=== PATIENT | female | born 1945 | race Caucasian/White ===

== ENCOUNTER → 2023-11-10 09:13 | Outpatient (REF) | payer MEDICARE, OTHER, SELFPAY | LOC: RAD 09:13 | PROVIDERS: ATTENDING PHYSICIAN Internal Medicine Gastroenterology; FAMILY PHYSICIAN Family Medicine | DX: R13.10 Dysphagia, unspecified (principal) | CPT/HCPCS: 74246 ==

== ENCOUNTER 2024-02-21 19:55 | Observation (INO) | payer MEDICARE, OTHER, SELFPAY ==
[2024-02-21 16:13] VITALS: BP 188/76
--- NOTE | 2024-02-21 16:14 | ED.GENMED ---
History of Present Illness
General
Chief Complaint: Seizure
Source: patient and ambulance crew
Exam Limitations: none
Time Seen by Provider: 02/21/24 16:14
Nursing documentation reviewed up to this point in time: agreed with
History of Present Illness
History of Present Illness:
79-year-old female presents for seizure. She has a history of complex partial seizures on Vimpat, HTN, bipolar cyst, depression remote history of alcoholism has been sober for 17 years. Pt states she remembers being in bed, next recall is sitting
on the toilet with 'my head down and seeing black boots all around me (EMS boots) She does not recall wlking to the bathroom. States past two weeks has been unable to walk as usual with her walker due to weakness and her legs giving out 'my daughter
caught me a couple of times.' Denies recent falls. Has a headache, has chronic headaches, this is not new, usually take Tylenon for H/A and 'it doesn't help.' Denies change in vision, denies n/v/d/c. Denies SOB, CP, abdominal pain. Denies UTI
symptoms.
Pt takes her Vimpat 100 mg BID as ordered has not missed a dose.
Followed by Neurology Dr. Campuzano who she saw 2 weeks ago.
4:45 p.m.
Daughter arrives stating patient has declined physically in the past 2 weeks becoming weaker and weaker and today she was barely able to get her out of bed to walk with her walker to the bathroom today. She confirms pt's above history. States pt
sitting on the toilet said 'I cannot make it to the car' so daughter called EMS to transport her here. Patient tested COVID-negative at home today. Daughter states she is just more lethargic, tired and wants to sleep all the time for the past 2
weeks.
Patient last saw neurologist Dr. Campuzano on 01/28/2024. She has request for outpatient lab work with her, I will perform these tests here today.
Past History
Past History
ED Past Medical History: HTN, Hypercholesterolemia, Psychiatric (Bipolar disorder) and Other (Hepatitis C, Colitis)
ED Past Surgical History: Orthopedic (Right hip replacement 11/26/2012)
Social History
Tobacco: Former smoker
Alcohol: Former (Sober for 17 years)
Drug: None
Personal:
Living: with family (Daughter)
Employment: Retired
Family History
Family History: Other (Noncontributory)
Review of Systems
Review of Systems
Allergies reviewed?: Yes
All Other Systems: ROS reviewed and negative except as documented in HPI and ROS
Constitutional: Denies fever
Respiratory: Denies trouble breathing
Cardiac: Denies chest pain
ABD/GI: Denies abdominal pain, nausea, vomiting, diarrhea, constipated or anorexia
: Denies dysuria, incontinence or difficulty voiding
Musculoskeletal: Reports no symptoms
Skin: Reports no symptoms
Neurological: Reports headache (chronic similar to her previous headaches)
Phy Exam
Physical Exam
Physical Exam:
GENERAL: No acute distress. A&Ox3.
CONSTITUTIONAL: Afebrile.
EYES: PERRL, conjunctivae normal
ENMT: moist mucus membranes, Pharynx nl
RESPIRATORY: Regular respirations, nonlabored, lungs clear.
CARDIOVASCULAR: Regular rate and rhythm, no murmurs, no rubs.
GI: Soft, nontender, normal BS
MUSCULOSKELETAL: Moves with ease. Well perfused. No edema
SKIN: Warm, dry, pink
PSYCH: Normal mood and affect. Well kept, interactive and appropriate
NEUROLOGIC: Awake, alert and oriented. No focal neurological deficits. Speech clear, strength equal throughout. No seizure activity
Course
Orders/Labs/Results
Orders:
Orders
02/21/24 16:21
Basic Metabolic Panel Urgent
C-Reactive Protein Urgent
Comment: ADD ON
Complete Blood Count/With Diff Urgent
Erythrocyte Sed Rate Urgent
Comment: ADD ON
TSH Reflex To Free T4 Urgent
Comment: ADD ON
Vitamin B12 Urgent
Comment: ADD ON
02/21/24 16:50
Case Management Consult ONCE
Case Management Consult: Discharge Planning
Comment: 79 yo with increasing weakness over past 2 weeks, daughter would prefer PT/OT at home
02/21/24 16:51
Physical Therapy Consult [Pt Eval And Treat] Urgent
Treatment: ambulate with walker
Activity Level: As Tolerated
02/21/24 17:04
Add On- LAB Urgent
Tests Added?: CRP, Sed rate, TSH reflex T4, Vit B 12, Vit B1
02/21/24 17:50
Comprehensive Metabolic Panel Urgent
Vitamin B1, Whole Blood [S] Urgent
02/21/24 18:12
Urinalysis Reflex To Culture Urgent
Date Specimen was Collected: 02/21/24
Time Specimen was Collected: 17:55
Urine Microscopic Reflex Cult Urgent
02/21/24 18:55
Lacosamide [Vimpat] 100 mg PO NOW STA
02/21/24 19:28
CR Chest - 2 Views Stat
Comment:
Reason For Exam: sob
02/21/24 19:37
Admit/Transfer Patient As Directed
Co-Sign Provider:
Level of Care: Observation services
Assign to:: Telemetry
Physician / Group: jose enrique olivarez
Diagnosis: seizure
Reason for Telemetry: Other
Other Reason for Telemetry: seizure
Date to Stop Telemetry: 02/23/24
Time to Stop Telemetry: 11:00
PRN Pain Medication Management As Directed
May give lesser potent ordered pain med per pt: No
preference::
Protocol:: Medication orders for pain may NOT be administered in
a manner that defers to patient preference. Follow
all order instructions as written.
Contact provider if ordering parameters for pain need
to be adjusted.
02/21/24 19:38
Code Status As Directed
Resuscitation Status: Full Code
02/21/24 19:59
COVID-19 Antigen Stat
Source: Nasal Swab
02/21/24 20:00
Iohexol [Omnipaque] 50 ml PO ONCE ONE
02/23/24 11:00
DC Protocol for Telemetry ONCE
Abnormal Lab Results
02/21/24 02/21/24 02/21/24
16:21 17:50 18:12
RBC 4.01 L 10^6/uL
(4.20-5.40)
MCH 33.4 H pg
(27.0-31.0)
ESR 23 H mm/hour
(0-20)
Chloride 108 H mmol/L
(98-107)
Carbon Dioxide 20 L mmol/L
(22-30)
BUN 18 H mg/dl
(7-17)
Calcium 11.1 H mg/dl 10.8 H mg/dl
(8.4-10.2) (8.4-10.2)
Vitamin B12 > 1000 H pg/ml
(239-931)
Leukocyte Esterase Rfl Trace A
(Negative)
Urine Bacteria (Reflex) Few A
(Negative)
02/21/24 16:21
02/21/24 17:50
Vital Signs
Initial and Last Documented VS:
Initial Vital Signs
Temp Pulse Resp BP Pulse Ox
98.3 F 75 17 188/76 99
02/21/24 16:13 02/21/24 16:13 02/21/24 16:13 02/21/24 16:13 02/21/24 16:13
Last Documented Vital Signs
Temp Pulse Resp BP Pulse Ox
98.3 F 69 16 151/77 98
02/21/24 16:13 07/20/24 16:49 02/21/24 16:49 02/21/24 16:49 02/21/24 16:49
Sociology Adjunct Instructor consulted with Physician
Sociology Adjunct Instructor consulted with physician?: Yes
Name of Physician Consulted: Dr. Nelson
MDM/Problems Addressed
Differential Diagnosis Includes:
Breakthrough seizure, deconditioning/generalized weakness, UTI, dehydration
MDM/Problems Addressed:
79-year-old female presents for seizure. She has a history of complex partial seizures on Vimpat, HTN, bipolar cyst, depression remote history of alcoholism has been sober for 17 years. Pt states she remembers being in bed, next recall is sitting
on the toilet with 'my head down and seeing black boots all around me (EMS boots) She does not recall wlking to the bathroom. States past two weeks has been unable to walk as usual with her walker due to weakness and her legs giving out 'my daughter
caught me a couple of times.' Denies recent falls. Has a headache, has chronic headaches, this is not new, usually take Tylenon for H/A and 'it doesn't help.' Denies change in vision, denies n/v/d/c. Denies SOB, CP, abdominal pain. Denies UTI
symptoms.
Pt takes her Vimpat 100 mg BID as ordered has not missed a dose.
Followed by Neurology Dr. Campuzano who she saw 2 weeks ago.
Pt had episode8 days ago when she was walking with walker, faltered and daughter lowered her into a chair. 'She went limp.'
4:45 p.m.
Daughter arrives stating patient has declined physically in the past 2 weeks becoming weaker and weaker and today she was barely able to get her out of bed to walk with her walker to the bathroom today. She confirms pt's above history. States pt
sitting on the toilet said 'I cannot make it to the car' so daughter called EMS to transport her here. Patient tested COVID-negative at home today. Daughter states she is just more lethargic, tired and wants to sleep all the time for the past 2
weeks.
Patient last saw neurologist Dr. Campuzano on 01/28/2024. She has request for outpatient lab work with her, I will perform these tests here today.
4:45 PM:
Consult in for P/T, Case Management
CBC normal
ESR unremarkable
CMP: Unremarkable
UA: Negative for infection
7:00 p.m.
No response from P/T or Case Management
Daughter at bedside states she is not comfortable taking patient home due to general weakness. Requests admission for P/T eval and Case Management eval.
May need rehab.
Hospitalist notified of admission
*Critical Care Note
Total Time (30-74mins, 75-104mins- exclusive of procedures): Not Applicable
ED Attending Note
-
Portions of this chart may have been created with voice recognition software.� Occasional wrong word or��sound alike� substitutions may have occurred due to the inherent limitations of voice recognition software.
Discharge Plan
Departure
Patient Disposition: Admit
Date of Disposition: 02/21/24
Time of Disposition: 18:52
Admit to: Med/Surg
Presentation/result/management discussed w/ accepting MD/DO: Hospitalist
Condition: Fair
Discharge Problem:
Seizure, Generalized weakness
Interventions
Interventions:
*Risk Screen - Suicide Last Done: 02/21/24 16:16
*General Assessment Last Done: 02/21/24 16:16
*Neglect/Abuse Screening Last Done: 02/21/24 16:16
ED- Fall Risk Assessment Last Done: 02/21/24 16:18
ED- Cardiac Assessment Last Done: 02/21/24 16:18
ED- Neurological Assessment Last Done: 02/21/24 16:18
ED- Pulmonary Assessment Last Done: 02/21/24 16:18
[2024-02-21 16:15] VITALS: BMI 21.5
[2024-02-21 16:49] VITALS: BP 151/77
[2024-02-21 17:01] LABS: % Basophils 0.6 % (0-2); % Eosinophils 1.4 % (0-6); % Immature Granulocytes 0.2 % (0-0.5); % Lymphocytes 28.6 % (20.5-51.1); % Neutrophils 61.2 % (42.2-75.2); Absolute Eosinophils 0.1 10^3/uL (0-0.7); Absolute Lymphocytes 1.5 10^3/uL (1.2-3.4); Absolute Monocytes 0.4 10^3/uL (0.1-0.6); Absolute Neutrophils 3.1 10^3/uL (1.4-6.5); Hematocrit 37.3 % (37.0-47.0); Hemoglobin 13.4 g/dL (12.0-16.0); Mean Corp Hgb Conc. 35.9 g/dL (33.0-37.0); Mean Corpuscular Hgb 33.4 pg (27.0-31.0); Mean Platelet Volume 9.8 fL (7.4-10.4); Nucleated Red Blood Cells % 0 %; Platelet Count 244 10^3/uL (130-400); Red Blood Cell Count 4.01 10^6/uL (4.20-5.40); Red Cell Dist. Width 12.5 % (11.5-14.5); White Blood Cell Count 5.1 10^3/uL (4.8-10.8)
[2024-02-21 17:26] LABS: Erythrocyte Sed Rate 23 mm/hour (0-20)
[2024-02-21 17:34] LABS: Blood Urea Nitrogen 18 mg/dl (7-17); Calcium 11.1 mg/dl (8.4-10.2); Carbon Dioxide 24 mmol/L (22-30); Chloride 104 mmol/L (98-107); Estimated Creatinine Clearance 65 ml/min; Glucose 99 mg/dl (70-99); Sodium 138 mmol/L (135-145); eGFR > 60.00
[2024-02-21 17:36] LABS: C-Reactive Protein < 5.00 mg/L (0.0-10.00)
[2024-02-21 18:07] LABS: TSH Reflex To Free T4 1.32 uIU/ml (0.47-4.68)
[2024-02-21 18:17] LABS: ALT (SGPT) 20 U/L (0-35); AST (SGOT) 36 U/L (14-36); Albumin 4.9 g/dl (3.5-5.0); Alkaline Phosphatase 70 U/L (38-126); Blood Urea Nitrogen 17 mg/dl (7-17); Calcium 10.8 mg/dl (8.4-10.2); Carbon Dioxide 20 mmol/L (22-30); Chloride 108 mmol/L (98-107); Estimated Creatinine Clearance 65 ml/min; Glucose 97 mg/dl (70-99); Potassium 4.7 mmol/L (3.5-5.1); Sodium 139 mmol/L (135-145); Total Bilirubin 0.5 mg/dl (0.2-1.3); Total Protein 7.6 g/dl (6.3-8.2); eGFR > 60.00
[2024-02-21 18:18] LABS: Urine Albumin Negative (Neg - Trace); Urine Bilirubin Negative (Negative); Urine Character Clear (Clear); Urine Color Yellow; Urine Glucose Negative (Negative); Urine Ketone Negative (Negative); Urine Leukocyte Trace (Negative); Urine Nitrite Negative (Negative); Urine Occult Blood Negative (Negative); Urine Urobilinogen Negative (Neg - 1+)
[2024-02-21 18:26] LABS: Vitamin B12 > 1000 pg/ml (239-931)
[2024-02-21 18:26] LABS: Urine Bacteria Few (Negative); Urine Red Blood Cell 0-2 /HPF (0-2); Urine White Cell 0-2 /HPF (0-5)
[2024-02-21] MEDS: VIMPAT 100 MG PO (19:11)
--- NOTE | 2024-02-21 19:12 | HPS.HSE ---
Family Physician
-
Family Physician: INTERVIEWE UNKNOWN - PT NOT
Chief Complaint
-
weakness
History of Present Illness
History of, hepatitis C, colitis, seizure, hypertension, bipolar, depression presented to us with progressively worsening weakness for the past 2 weeks. Today she was not able to walk with a walker. Daughter somehow got her into the bathroom but
patient hunched over and was not responding to her. Reportedly 60 seconds. Patient stated headache and dizziness. Patient also complaining of shortness of breath due to the weakness. Patient denies chest pain she denies any fever. Patient
complaining of generalized abdominal pain. Denies diarrhea or constipation. Daughter stated she complains of abdominal pain after eating. Denies dysuria hematuria.
Patient received a dose of vimpat in Er. admitting for further management.
Medical History
Past Medical History
Past Medical History: Reports Other
Additional Past Medical History:
Bipolar
Chron's disease
Hepatitis C
GERD
Past Surgical History: Reports Other
Additional Past Surgical History:
Bilateral hip replacement
Social History
Tobacco: Former Smoker
Alcohol: Former
Drug: Former User
Personal: Single
Living: With Family
Employment: Employed
Family History
Family History: Not pertinent
Allergies / Home Medications
Allergies reflects when Allergies were last updated in [facility].
Home Medications with original date entered in [facility]
Allergy/Medication List:
Allergies
Allergy/AdvReac Type Severity Reaction Status Date / Time
latex Allergy Mild Rash Verified 02/21/24 16:15
Home Medications
losartan 25 mg tablet 25 mg PO DAILY Blood pressure 10/13/16
mesalamine 400 mg capsule (with delayed release tablets inside) 800 mg PO TID Gastrointestinal issue 04/06/17
olanzapine 15 mg tablet (Zyprexa) 15 mg PO Mental Health 12/02/17
amlodipine 10 mg tablet 10 mg PO DAILY@1400 Blood pressure 07/23/22
acetaminophen 500 mg tablet (Tylenol Extra Strength) 1,000 mg PO TID@1000,1400,1900 02/21/24
acetaminophen 500 mg tablet (Tylenol Extra Strength) 1,500 mg PO DAILY@0600 02/21/24
cyanocobalamin (vitamin B-12) 500 mcg chewable tablet 500 mcg PO DAILY 02/21/24
diazepam 5 mg tablet (Valium) 5 mg PO TIDPRN PRN anxiety 02/21/24
lacosamide 50 mg tablet (Vimpat) 50 mg PO BID@0600,1400 02/21/24
lacosamide 50 mg tablet (Vimpat) 100 mg PO QPM@1900 02/21/24
[id number] 8 mg-folic ac 400 mcg-vit K 10 mcg chew tablet (Centrum Chewables) 1 tab PO DAILY 02/21/24
Review of Systems
-
Constitutional: Reports Fatigue
EENT: Reports No Symptoms
Respiratory: Reports Trouble Breathing
Cardiac: Reports No Symptoms
Abdomen/GI: Reports Abdominal Pain
: Reports No Symptoms
Musculoskeletal: Reports No Symptoms
Skin: Reports No Symptoms
Neurological: Reports Dizzy, Headache and Weakness
Endocrine: Reports No Symptoms
Hematologic/Lymphatic: Reports No Symptoms
Psych: Reports No Symptoms
Physical Exam
Vital Signs
Vital Signs
Temp Pulse Resp BP Pulse Ox
98.3 F 69 16 151/77 98
02/21/24 16:13 02/21/24 16:49 02/21/24 16:49 02/21/24 16:49 02/21/24 16:49
Physical Exam
General: Well Developed, Well Nourished and No Apparent Distress
HEENT: NormoCephalic, Moist mucous membranes and Atraumatic
Respiratory: Clear
Cardiac: S1/S2 and Regular Rhythm; No Murmur or Rub
GI: Soft, Non Distended, Normal Bowel Sounds and Tender; No Organomegaly
Rectal: Deferred by Provider
Musculoskeletal: No Clubbing, No Cyanosis and No Edema
Skin: Rash and Other (sacral wound)
Neuro: AO x 3 and Nonfocal/grossly intact
Psych: Calm
Laboratory Results
-
02/21/24 16:21
02/21/24 17:50
Laboratory Results
Total Bilirubin 0.5 mg/dl (0.2-1.3) 02/21/24 17:50
AST 36 U/L (14-36) 02/21/24 17:50
ALT 20 U/L (0-35) 02/21/24 17:50
Alkaline Phosphatase 70 U/L (38-126) 02/21/24 17:50
Data Reviewed
-
Lab Data: Labs Reviewed by me
Impression/Plan
-
# Possible seizure activity
-Vimpat continued
-Seizure precaution
-Neurology consulted
#generalized weakness/deconditioning
-PT/OT
-Cm consulted for placement
# Abdominal pain/history of colitis
-Will obtain CT of abdomen pelvis
# Short of breath likely from weakness
-Will obtain chest x-ray
-Oxygenating very well on room air
-Continue to monitor
#sacral wound present on admission
-wound care consulted
#essential HTN
- continue Losartan/Norvasc with hold parameters
Bipolar Disorder/anxiety
- on Zyprexa, Valium
#History of colitis, unspecified
- on Mesalamine
DVT ppx: Heparin
Code: Full
--- NOTE | 2024-02-21 19:33 | W.PN.UPDATE ---
Addendum entered and electronically signed by Eric Tomlinson MD 02/22/24 13:33:
CT Abd/pel W Iv And Oral Contr
No acute abnormality throughout the abdomen and pelvis.
No intestinal obstruction or free air.
Unremarkable appendix.
Small bilateral simple renal cysts as well as additional subcentimeter low-attenuation left renal lesions too small to characterize.
True pelvic soft tissues significantly limited by beam hardening artifact from bilateral hip arthroplasties.
Addendum entered and electronically signed by Eric Tomlinson MD 02/21/24 22:13:
NEG Covid
CXR: No acute cardiopulmonary process.
CT AP: pending
Addendum entered and electronically signed by Eric Tomlinson MD 02/21/24 20:08:
CORRECTION:
Break through episodes of witnessed Sz despite Vimpat compliance
- report compliance with Vimpat
- 2 episodes - today and <del>yesterday</del> , February 12
Reports diffuse intermittent abdominal pain but soft
History of colitis, unspecified vs <del>Crohn</del> <del>dz</del> Ulcerative colitis
Original Note:
Update Note
Progress Note Update
This note serves as an addendum to the H&P by dictionary editor LILLIE
HPI
79F BiB EMS from home HX partial complex Sz disorder on Vimpat, HTN, Bipolar disorder on Zyprexa seen at ER for evaluation of witnessed focal Sz today and yesterday
Break through episodes of witnessed Sz despite Vimpat
- report compliance with Vimpat
- 2 episodes - today and February 12 with loss of consciousness
- witnessed by daughter
- denied falls and prevented by daughter by assisted fall
- Normally she use rolling walker at home
- associated with progressive weakness and acute gait dysfunction
- NEG COVID at home today.
- Daughter ( Primary youth care worker) states she is just more lethargic, tired and wants to sleep all the time for the past 2 weeks.
Reports intermittent diffuse abdominal pain but soft
HX IBD/UC on Mesalamine
ROS:
Denies n/v/d/c.
Denies SOB, CP, abdominal pain.
Denies UTI symptoms.
PHX
Partial seizure.
Pneumonia.
HTN
IBD/UC
PSHX
Total hip arthroplasty 07/24/2022 for impacted fracture of the neck of the proximal left femur.
Reviewed VS: unremarkable
PE
Gen: not toxic looking
HEENT: anicteric
Neck: supple
Lungs: CTA
Cor: RRR S1 S2
Abdomen: soft NT NG NRT
BOARD WORKER: Awake, alert and oriented. No focal neurological deficits. Speech clear, strength equal throughout
MS: no edema
Psych: appropriate
Data
Unremarkable CBC
Cl 108
CO2 20
nl Cr
Ca 10.8
NEG CRP
nl TSH
Unremarkable UA
Last hospitalist admission: 07/23/22 - 07/28/22
1. Partial seizure.
2. Pneumonia.
3. Total hip arthroplasty 07/24/2022 for impacted fracture of the neck of the proximal left femur.
ASSESSMENT & PLAN
Break through episodes of witnessed Sz despite Vimpat compliance
- report compliance with Vimpat
- 2 episodes - today and yesterday
- HX Partial seizure
- eval for acute infective process ( unremarkable UA and CBC)
- Denied urinary symptoms
- check Covid
- CXR to complete w/u
- continue Vimpat
- Neuro consult
Weakness and recent reports of intermittent lethargy [employer] ; currently awake and alert
Acute on chronic ambulatory decline; Use RW at home
-DDX: Infected TME vs post ictal
- No N/V/D
- Empiric IVF NS 1 L
- Fall precaution
- PT/OT
- Speech consult to screen for swallowing
- CRM consult
Reports diffuse intermittent abdominal pain but soft
History of colitis, unspecified vs Crohn dz
Denied constipation. No N/V/D
- on Mesalamine
- CT AP
Essential HTN
- continue Losartan/Norvasc
Bipolar Disorder
- on Zyprexa
HX urinary retention
DVT Px: LMWH
Code: Full code
Obs TLM
[2024-02-21 20:29] LABS: COVID-19 Antigen Negative (Negative)
[2024-02-21 21:25] VITALS: BP 174/70; BMI 23.4
[2024-02-21] MEDS: HEPARIN 5000 UNITS SC (22:09)
[2024-02-21] MEDS: OMNIPAQUE 50 ML PO (22:10)
[2024-02-21] MEDS: ASACOL, DELZICOL DR 800 MG PO (22:12)
[2024-02-21] MEDS: ZYPREXA 15 MG PO (22:12)
[2024-02-21] MEDS: NSS 1000 IV (22:13)
[2024-02-21] MEDS: TYLENOL 650 MG PO (22:34)
[2024-02-21] MEDS: VIMPAT 50 MG PO (22:52)
[2024-02-21 23:27] VITALS: BP 170/67
--- NOTE | 2024-02-21 23:34 | PTCARENOTE ---
Pt. arrived to unit from ED via stretcher. Pt. pulled over from stretcher to bed in room 319-1 on . Daughter at bedside to help with admission questions. Pt. AAOx3, [place]. Small stage 2 noted on sacrum. Area cleansed, foam dressing applied.
Patient incontinent at times. Tele placed per orders. Oriented to unit. Call landers within reach. Plan of care ongoing.
[2024-02-22] VITALS (8 sets, daily range): BP systolic 130–180; BP diastolic 68–87
[2024-02-22 00:55] LABS: Urine Albumin Negative (Neg - Trace); Urine Bilirubin Negative (Negative); Urine Character Clear (Clear); Urine Color Yellow; Urine Glucose Negative (Negative); Urine Ketone Negative (Negative); Urine Leukocyte Trace (Negative); Urine Nitrite Negative (Negative); Urine Occult Blood Negative (Negative); Urine Urobilinogen Negative (Neg - 1+)
[2024-02-22 01:17] LABS: Urine Urothelial Cell 16-20 /LPF (FEW)
[2024-02-22 01:18] LABS: Urine Bacteria Few (Negative); Urine Red Blood Cell 0-2 /HPF (0-2)
[2024-02-22 01:19] LABS: Urine Squamous Cell 21-25 /LPF (Few)
[2024-02-22] MEDS: VIMPAT 50 MG PO (06:09)
[2024-02-22] MEDS: TYLENOL 650 MG PO ×2 (06:25→15:30)
[2024-02-22 07:37] LABS: Hemoglobin 11.7 g/dL (12.0-16.0); Mean Corp Hgb Conc. 35.5 g/dL (33.0-37.0); Mean Platelet Volume 10.5 fL (7.4-10.4); Platelet Count 192 10^3/uL (130-400); Red Blood Cell Count 3.55 10^6/uL (4.20-5.40); Red Cell Dist. Width 12.3 % (11.5-14.5); White Blood Cell Count 4.2 10^3/uL (4.8-10.8)
[2024-02-22 07:38] LABS: Blood Urea Nitrogen 12 mg/dl (7-17); Calcium 10.5 mg/dl (8.4-10.2); Carbon Dioxide 24 mmol/L (22-30); Chloride 106 mmol/L (98-107); Estimated Creatinine Clearance 54 ml/min; Glucose 83 mg/dl (70-99); Potassium 4.2 mmol/L (3.5-5.1); Sodium 138 mmol/L (135-145); eGFR > 60.00
--- NOTE | 2024-02-22 09:12 | CON.NEURO4 ---
Consultation - Neurology 4
-
CONSULTING PHYSICIAN: Iván
REFERRING PHYSICIAN: ER
DICTATED BY: Iván
DATE/TIME OF REQUEST: 02/21/24 in the evening
DATE/TIME OF CONSULTATION: 02/22/24
Reason for Consultation: seizure
History of Present Illness:
79-year-old female with a history of epilepsy who follows with Dr. Campuzano as an outpatient who has had 2 witnessed events--possible breakthrough seizures, the first of which was on February 12 and the second of which was yesterday. Her daughter has
been administering Vimpat and the dosage is incorrect; last seen by Dr. Campuzano in our office on 01/27/24--was prescribed 150mg BID. Patient's daughter has been giving her 50mg in the morning, 50mg midday and 100mg in the evening. Seizure-like
events were witnessed by her daughter. February 12 event consisted of her 'eating a lot of sugary food, slowing down and then going limp; got pale, lips turned blue.' Unclear if she had LOC. Lasted about 1 minute in duration. Second event was
yesterday--daughter reports she 'when limp, nodded, was trying to get her to the toilet during it, was not coherent.'
She is negative for COVID. This has been associated with progressively worsening weakness and difficulty with ambulation. She is also been more lethargic, tired and wants to sleep all the time for the past 2 weeks. She is being evaluated for any
acute infective process.
Her seizures consist of 'a bit of dropping of the head and neck, feeling fuzzy, lip smacking and lack of awareness.' After the episode she tends to sleep a lot. She has never had a grand mal seizure. Her last seizure prior to these events was
April 2023.
She is also been having issues with short-term memory. Dr. Campuzano was concerned about MCI if not the start of Alzheimer's. She has a history of ETOH abuse and drug use and has been sober for 24 years.
She takes olanzapine and has developed some tremor, likely due to the extrapyramidal effects from long-term use of this medication. She has tried to go off in the past and had some difficulty with this.
PMH:
Bipolar
UC
Hepatitis C
GERD
epilepsy
MCI vs dementia
Past Surgical History: Reports Other
Additional Past Surgical History:
Bilateral hip replacement
Social History
Tobacco: Former Smoker
Alcohol: Former
Drug: Former User
Personal: Single
Living: With Family
Employment: Employed
Family History
Family History: Not pertinent
Allergies
latex Allergy (Mild, Verified 02/21/24 16:15)
Rash
Home Medications
�Medication �Instructions �Recorded
losartan 25 mg tablet 25 mg PO DAILY Blood pressure 10/13/16
mesalamine 400 mg capsule (with 800 mg PO TID Gastrointestinal 04/06/17
delayed release tablets inside) issue
olanzapine 15 mg tablet (Zyprexa) 15 mg PO [facility] 12/02/17
amlodipine 10 mg tablet 10 mg PO DAILY@1400 Blood pressure 07/23/22
acetaminophen 500 mg tablet 1,000 mg PO TID@1000,1400,1900 02/21/24
(Tylenol Extra Strength)
acetaminophen 500 mg tablet 1,500 mg PO DAILY@0600 02/21/24
(Tylenol Extra Strength)
cyanocobalamin (vitamin B-12) 500 500 mcg PO DAILY 02/21/24
mcg chewable tablet
diazepam 5 mg tablet (Valium) 5 mg PO TIDPRN PRN anxiety 02/21/24
lacosamide 50 mg tablet (Vimpat) 50 mg PO BID@0600,1400 02/21/24
lacosamide 50 mg tablet (Vimpat) 100 mg PO QPM@1900 02/21/24
ajstdato-sckuyiga-ewlu 8 mg-folic 1 tab PO DAILY 02/21/24
ac 400 mcg-vit K 10 mcg chew
tablet (Centrum Chewables)
Review of Symptoms:
Patient denies any fever, headache, chest pain, shortness of breath, GI or symptoms.
�Per the HPI.�All systems are reviewed negative except above.
Vital Signs
Temp Pulse Resp BP Pulse Ox
97.7 F 61 16 166/76 97
02/22/24 07:54 02/22/24 07:54 02/22/24 07:54 02/22/24 07:54 02/22/24 07:54
Lab Results
02/22/24 06:26
02/22/24 06:26
Sodium 138 mmol/L (135-145) 02/22/24 06:26
Potassium 4.2 mmol/L (3.5-5.1) 02/22/24 06:26
BUN 12 mg/dl (7-17) 02/22/24 06:26
Glucose 83 mg/dl (70-99) 02/22/24 06:26
Calcium 10.5 mg/dl (8.4-10.2) H 02/22/24 06:26
Vitamin B12 > 1000 pg/ml (239-931) H 02/21/24 16:21
Physical Exam:
The patient is afebrile, heart sounds S1 and S2 are regular, and chest is clear to auscultation bilaterally.
Neurologic Examination:
The patient is awake, alert and oriented x to month, year, unable to state date. Could give about half the details of her address. Able to provide some but not all of her PMH. She is able to follow commands and answer questions appropriately.
There is no aphasia or dysarthria. On cranial nerve assessment, pupils are 3 mm bilateral, round and reactive to light and accommodation. Visual vega are full. Extraocular movements are intact. Facial sensations are intact and bilaterally
symmetrical, there is no facial asymmetry. Hearing is intact bilaterally to normal conversation volume. Tongue palate and uvula are midline. Sternocleidomastoid strengths are full bilaterally. Motor strengths are 4+/5 bilateral upper and lower
extremities on [employer] [place] scale. +tremor with sustained posture in BUE--her baseline, attributed to olanzapine. Deep tendon reflexes are 1+ bilateral upper and lower extremities and Babinski is absent bilaterally. Sensations of touch,
temperature are intact and bilaterally symmetrical. There was no extinction noted on double simultaneous stimulation. Coordination is intact by finger to nose bilaterally.
Neuro Imaging:
MRI brain 12/16/22 showed:
'There is mild to moderate age-related parenchymal atrophy, greatest in the bilateral frontal lobes. Patchy T2/FLAIR hyperintense signal in the white matter of the bilateral cerebral hemispheres is most compatible with the changes of mild chronic
microangiopathic ischemia. There is no mass effect, midline shift, or extra axial collection. There is no abnormal parenchymal or meningeal enhancement. There is no abnormal signal intensity on diffusion-weighted images.
The vascular flow voids at the skull base are unremarkable, as far as visualized.
There is mild hyperostosis frontalis interna. Mild mucosal thickening is identified in the bilateral ethmoid sinuses. The right mastoid air cells are mildly opacified.
IMPRESSION:
No acute intracranial abnormality. Chronic senescent changes, as detailed above.'
Impression:
YOSSI AGUILAR is a 79 year old F who has presented to the hospital after two possible breakthrough seizures as well as generalized weakness and lethargy. She has a history of epilepsy and cognitive impairment as well as ETOH and drug abuse--sober 24
years--and a concern for possible underlying AD as well. She has been taking Vimpat incorrectly; she is supposed to be on 150mg BID and is taking it instead TID--50mg/50mg/100mg.
Differentials for the patient's presentation include:
1. breakthrough seizures in the setting of underdosed/incorrectly dosed Vimpat
2. deconditioning with a history of cognitive impairment
3. stroke seems less likely given lack of focality on exam
Recommendations:
1. changed Vimpat dosing to what has been prescribed by Dr. Campuzano as an outpatient; reviewed at length with daughter and patient what the correct dose is/the importance of compliance
2. daughter requesting MRI brain given recent generalized weakness
3. hold off on EEG for now; appears to be at baseline mental status and this is unlikely to address change clerk
4. workup for infection per primary team
5. seizure precautions, neurochecks
6. consider neuropsychological testing as outpatient
7. has some EPS with Zyprexa use--has attempted to d/c this in the past without good results; continue current dosing
Discussed patient care with: ER, patient, hospitalist
Will c/t follow.
[2024-02-22] MEDS: COZAAR 25 MG PO (09:17)
[2024-02-22] MEDS: ASACOL, DELZICOL DR 800 MG PO ×3 (09:17→21:02)
[2024-02-22] MEDS: HEPARIN 5000 UNITS SC ×2 (09:18→21:04)
--- NOTE | 2024-02-22 10:00 | W.PN.HOSP.TC ---
Today's Communication/Plan
-
Neuro evaluation
PT/OT
Assessment / Plan
Assessment / Plan
Assessment:
Generalized weakness/deconditioning
- PT/OT
- CM for safe dispo
Hx of seizures
- recent Complex partial seizure per daughter at home, on 02/12
- continue Vimpat and seizure precautions
- Neuro consulted
- continue EEG or CT head if neuro recommends
Abdominal pain
- resolved
- CT negative
SOB - subjective from weakness
- resolved
- CXR clear
- not on O2
sacral wound present on admission
- wound care consulted
essential HTN
- continue Losartan/Norvasc with hold parameters
Bipolar Disorder/anxiety
- on Zyprexa, Valium
History of colitis, unspecified
- on Mesalamine
DVT ppx: Heparin
Code: Full
Anticipated Discharge: Within 24 hours
Subjective/Interval History
-
Date of Service: February 22, 2024
denies any new complaints
Objective Data
-
Labs:
Laboratory Results
02/22/24
06:26
WBC 4.2 L
Hgb 11.7 L
Hct 33.0 L
Plt Count 192 D
Sodium 138
Potassium 4.2
Chloride 106
Carbon Dioxide 24
BUN 12
Creatinine 0.6
Glucose 83
Calcium 10.5 H
Vital Signs:
Vital Signs
Temp Pulse Resp BP Pulse Ox
97.7 F 61 16 166/76 97
02/22/24 07:54 02/22/24 07:54 02/22/24 07:54 02/22/24 07:54 02/22/24 07:54
I&O
02/21/24 02/22/2424
06:59 06:59 06:59
Intake Total 1100 / 1100
Balance 1100 / 1100
Physical Exam
-
General: No Apparent Distress
HEENT: Normocephalic and Atraumatic
Respiratory: Negative Wheezes
Cardiac: Regular Rhythm
GI: Soft
Neuro: AO x 3
Psych: Calm
Data Reviewed
-
Total Time Spent with Patient (in minutes): 41
Labs: Labs Reviewed by me
--- NOTE | 2024-02-22 12:42 | PTOTSP ---
Speech Therapy
Presentation: Patient was oriented and cooperative. Patient's speech and language appeared to be WNL. Patient was hard of hearing without hearing aids.
Swallowing Complaints: Patient and her daughter stated that patient has been having trouble with swallowing for the past year which has gotten worse in the past 3 months. Patient has been having difficulty swallowing larger pills and harder solids
as it 'gets stuck in her esophagus'. Per daughter, MD stated that she has a 'tight esophagus' and recommended a VSE.
Swallowing Function: Patient was observed with several sips of thin liquids and bites of IDDSI Level 6 solids in which patient appeared to tolerate as she did not exhibit any overt clinical s/sx of aspiration or difficulty with mastication/
manipulation. Harder solids were not trialed due to her reported discomfort and preference for softer solids. In addition, patient is edentulous.
Given the above information, recommend IDDSI level 6 solids and thin liquids with VSE to quantify swallow function.
Recommendations:
1) IDDSI Level 6 and thin liquids
2) Aspiration precautions
3) Medications as tolerated
4) May benefit from assistance with PO
5) VSE to quantify swallowing function
Plan: FACILITIES SUPERVISOR will continue to follow; pending hospitalization.
--- NOTE | 2024-02-22 14:30 | CM ---
Met with pt and her daughter at bedside
Pt lives with her daughter in a 1 story home. 2 steps to bedroom; 1 step to enter
Pt ambulates with rolling walker. Assist with adl's. Requiring more assist and noticeably weaker last week
Daughter is paid care-taker thru waiver program - 56hrs/wk
DME - rolling walker, cane, shower chair
SNF - [facility] in past
HH - [facility] in past
PCP - Dr Pema Mae
Pharm - [facility]
PT/OT recs pending
Daughter would like to have pt return home at d/c with HH
CM consult - advance directive - given info packet to review
CM will cont to follow for d/c needs
Plan - anticipate home with HH vs SNF
[2024-02-22] MEDS: NORVASC 10 MG PO (14:51)
[2024-02-22] MEDS: VIMPAT 150 MG PO ×2 (14:51→21:02)
[2024-02-22] MEDS: IMODIUM 2 MG PO (16:58)
[2024-02-22] MEDS: ZYPREXA 15 MG PO (21:02)
[2024-02-22] MEDS: IMODIUM PO (21:04)
[2024-02-23] VITALS (7 sets, daily range): BP systolic 146–180; BP diastolic 72–100; O2SAT 97; BMI 23.4
[2024-02-23 06:59] LABS: Hematocrit 35.5 % (37.0-47.0); Hemoglobin 12.7 g/dL (12.0-16.0); Mean Corp Hgb Conc. 35.8 g/dL (33.0-37.0); Mean Corpuscular Volume 94.9 fL (81.0-99.0); Mean Platelet Volume 9.4 fL (7.4-10.4); Platelet Count 228 10^3/uL (130-400); Red Blood Cell Count 3.74 10^6/uL (4.20-5.40); Red Cell Dist. Width 12.2 % (11.5-14.5); White Blood Cell Count 4.2 10^3/uL (4.8-10.8)
[2024-02-23 07:35] LABS: Blood Urea Nitrogen 13 mg/dl (7-17); Calcium 10.8 mg/dl (8.4-10.2); Carbon Dioxide 22 mmol/L (22-30); Chloride 105 mmol/L (98-107); Estimated Creatinine Clearance 46 ml/min; Glucose 99 mg/dl (70-99); Potassium 4.1 mmol/L (3.5-5.1); Sodium 138 mmol/L (135-145); eGFR > 60.00
--- NOTE | 2024-02-23 08:40 | W.PN.NEURO.1 ---
Documented by User: Lesia Austin NP 02/23/24 11:36
Today's Communication / Plan
-
.
Neuro Assessment/Plan
Assessment
YOSSI AGUILAR is a 79 year old F who has presented to the hospital after two possible breakthrough seizures as well as generalized weakness and lethargy. She has a history of epilepsy and cognitive impairment as well as ETOH and drug abuse--sober 24
years--and a concern for possible underlying AD as well. She has been taking Vimpat incorrectly; she is supposed to be on 150mg BID and is taking it instead TID--50mg/50mg/100mg.
I. Breakthrough seizures in the setting of underdosed/incorrectly dosed Vimpat.
II. Deconditioning with a history of cognitive impairment.
III. Stroke seems less likely given lack of focality on exam.
IV. Extrapyramidal side effects including tremor and tardive dyskinesia in the setting of chronic olanzapine usage.
Plan
-Changed Vimpat dosing to what has been prescribed by Dr. Campuzano as an outpatient; 150mg q12hrs, reviewed at length with daughter and patient what the correct dose is/the importance of compliance.
-Daughter requesting MRI brain given recent generalized weakness.
-Hold off on EEG for now; appears to be at baseline mental status and this is unlikely to knife changer.
-Workup for infection per primary team.
-Seizure precautions, neuro checks per unit guidelines.
-Consider neuropsychological testing as outpatient
-Has some EPS with Zyprexa use--has attempted to d/c this in the past without good results; continue current dosing.
-DVT prophylaxis.
-Will follow pending results. Patient should follow-up with Neurology as an outpatient in the next 4 weeks, may see the TIRE AND LUBE TECHNICIAN or one of the physicians.
Subjective/Objective
Subjective Data
Date of Service: February 23, 2024
No acute events overnight. Patient is tearful/scared this morning. She reports a mild headache/dizziness. She notes ongoing intermittent dysphagia when she is anxious only. She denies any vision changes, speech difficulty, numbness, focal weakness,
nausea, chest pain, palpitations, and shortness of breath.
Objective Data
Vital Signs
Temp Pulse Resp BP Pulse Ox
97.3 F 60 16 163/73 98
02/23/24 07:00 02/23/24 07:00 02/23/24 07:00 02/23/24 07:00 02/23/24 07:00
Lab Results
02/23/24 06:39
02/23/24 06:39
Sodium 138 mmol/L (135-145) 02/23/24 06:39
Potassium 4.1 mmol/L (3.5-5.1) 02/23/24 06:39
BUN 13 mg/dl (7-17) 02/23/24 06:39
Glucose 99 mg/dl (70-99) 02/23/24 06:39
Calcium 10.8 mg/dl (8.4-10.2) H 02/23/24 06:39
Vitamin B12 > 1000 pg/ml (239-931) H 02/21/24 16:21
Patient Allergies
latex Allergy (Mild, Verified 02/21/24 16:15)
Rash
Review of Systems
-
History Source: Patient
EENT: Negative Blurry Vision, Decreased Vision or Swallowing Difficulty
Respiratory: Negative Cough or Trouble Breathing
Cardiac: Negative Chest Pain or Palpitations
Abdomen/GI: Constipated; Negative Nausea
Genitourinary: Negative Difficulty Voiding
Neuro: Dizzy and Headache; Negative Weakness, Numbness, Ataxia, Tremors or Speech Problem
Physical Exam
-
General: Appears Chronically Ill and Other (anxious)
Eyes: No Ptosis and PERRLA
HEENT: Normocephalic and Atraumatic (scar left scalp)
Neck: Full Range of Motion
Respiratory: No Dyspnea
GI: Non-distended
Extremities: No Clubbing, No Cyanosis and No Edema
Psych: Anxious
Extended Neurological Exam
Mood & Affect: Anxious
Attention Span & Concentration: Awake, Alert and Interactive
Memory: Unremarkable (AAOx3) and Incomplete Historian
Tremor: Rhythmic Distal 3/sec and With Action; Negative Hand Tremor Absent
Involuntary Movement: Other (Tardive dyskinesia face)
Speech: Quality Unremarkable, Quantity Unremarkable and Rate of Production Unremarkable
Cranial Nerve II: Left Eye: Pupillary Reactivity Unremarkable, Pupillary Size Unremarkable and Visual Beck Intact
Cranial Nerve II: Right Eye: Pupillary Reactivity Unremarkable, Pupillary Size Unremarkable and Visual Beck Intact
Cranial Nerves III, IV, : Extraocular Movement: Extraocular Movement Full in all Directions
Cranial Nerve V: Facial Sensation: Intact to Light Touch
Cranial Nerve VIII: Hearing: Unremarkable Hearing to Normal Conversational Volume
Cranial Nerves IX, X: Palate Movement: Palate Elevation Symmetric
Cranial Nerve XI: Shoulder Shrug: Unremarkable
Cranial Nerve XII: Tongue Protusion: Midline
Muscle Strength, Overall: Full Throughout
Muscle Bulk & Tone: Bulk Unremarkable and Tone Unremarkable
Pronator Drift: No Drift in Upper Extremities and No Drift in Lower Extremities
Deep Tendon Reflexes: Unremarkable Throughout
Touch Sensation: Double Simultaneous Stimulation Unremarkable
Coordination: Erzeda-ksnq-zbbxoc Testing Unremarkable
Babinski Sign: Absent Bilaterally
Data Reviewed
-
CT Head: Report Reviewed and Image Reviewed
MRI Head: Pending
Labs: Report Reviewed
Reviewed with: Physician, Patient and Family
Medications
-
Medications:
Generic Name Dose Route Start Last Admin
Trade Name Freq PRN Reason Stop Dose Admin
Acetaminophen 650 mg 02/21/24 21:13 02/22/24 15:30
Acetaminophen 325 Mg Tablet PO 03/20/24 21:12 650 mg
Q4HPRN PRN Administration
mild pain/MCKNIGHT/temp> 100.4F
Amlodipine Besylate 10 mg 02/22/24 14:00 02/22/24 14:51
Amlodipine 10 Mg Tablet PO 03/21/24 13:59 10 mg
DAILY@1400 TAL Administration
Bisacodyl 10 mg 02/21/24 21:13
Bisacodyl 10 Mg Rectal Suppository RECTAL 03/20/24 21:12
[id number] PRN
constipation
Diazepam 5 mg 02/21/24 21:13 02/23/24 09:38
Diazepam 5 Mg Tablet PO 03/20/24 21:12 5 mg
TIDPRN PRN Administration
anxiety
Heparin Sodium 5,000 units 02/21/24 21:13 02/23/24 09:30
Heparin 5,000 Units/Ml 1 Ml Vial SC 03/20/24 21:12 5,000 units
Q12 TAL Administration
Lacosamide 150 mg 02/22/24 12:30 02/23/24 09:30
Lacosamide (Vimpat) 100 Mg Tablet PO 03/21/24 12:29 150 mg
BID TAL Administration
Loperamide HCl 2 mg 02/22/24 16:00 02/23/24 09:33
Loperamide 2 Mg Capsule PO 03/21/24 15:59 Not Given
TID TAL
Losartan Potassium 25 mg 02/22/24 08:00 02/23/24 09:30
Losartan 25 Mg Tablet PO 03/21/24 07:59 25 mg
DAILY TAL Administration
Mesalamine 800 mg 02/21/24 22:00 02/23/24 09:30
Mesalamine 400 Mg Delayed Release Capsule PO 03/20/24 21:59 800 mg
TID TAL Administration
Olanzapine 15 mg 02/21/24 22:00 02/22/24 21:02
Olanzapine 7.5 Mg Tablet PO 03/20/24 21:59 15 mg
HS TAL Administration
Polyethylene Glycol 17 grams 02/21/24 21:13
Polyethylene Glycol Powder 17 Grams Packet PO 03/20/24 21:12
DAILYPRN PRN
constipation
Senna/Docusate Sodium 1 tablet 02/21/24 21:13
Docusate W/Senna (Qing-Colace) Tablet PO 03/20/24 21:12
BIDPRN PRN
constipation
Sodium Chloride 0 flush 02/21/24 22:00
Sodium Chloride 0.9% (Flush) Syringe IV 03/20/24 21:59
PER PROTOCOL TAL

Documented by User: Everton Martino MD 02/23/24 23:45
Today's Communication / Plan
-
79 year old F who has presented to the hospital with recurrent seizures with postictal weakness and lethargy. She has a history of epilepsy and cognitive impairment as well as ETOH and drug abuse--(sober 24 years)--with cognitive impairment. She
has been taking Vimpat incorrectly
Plan: Vimpat 150 mg BID. Seizure precautions
[2024-02-23] MEDS: ASACOL, DELZICOL DR 800 MG PO ×3 (09:30→22:12)
[2024-02-23] MEDS: HEPARIN 5000 UNITS SC ×2 (09:30→20:10)
[2024-02-23] MEDS: COZAAR 25 MG PO (09:30)
[2024-02-23] MEDS: VIMPAT 150 MG PO ×2 (09:30→20:06)
[2024-02-23] MEDS: IMODIUM PO ×3 (09:33→22:12)
[2024-02-23] MEDS: VALIUM 5 MG PO (09:38)
--- NOTE | 2024-02-23 10:55 | W.PN.HOSP.TC ---
Today's Communication/Plan
-
Follow-up Brain MRI
Discharge planning
Assessment / Plan
Assessment / Plan
#Generalized weakness/deconditioning
-Suspect ongoing weakness from deconditioning and frail status
-PT/OT working with patient, fall precautions
-CM for safe dispo
#H/O of seizures
-Unclear etiology, recent complex partial seizure per daughter at home, on 02/12
-Was found that she was taking the wrong dose of Lacosamide, she has been educated on correct dosage
-C/W Lacosamide at current dosage, seizure precuations, IV benzodiazepine for breakthrough
-Family wanted MRI of brain for further assessment, study is pending
#sacral wound present on admission
-wound care consulted
-No signs of infection
#Essential HTN
-Home regimen includes Losartan and amlodipine
-No known history of associated systemic complications
-BP today is adequate for age
-Continue Losartan/Norvasc with hold parameters
#Bipolar Disorder/anxiety
-Currently on Zyprexa, Valium
-Does have some signs of EPS/TD on exam
#History of colitis, unspecified
-Suspect she has history of UC as she is currently on mesalamine
-No out-pt records with information on this diagnosis
-No recent hematochezia or other signs of flare
DVT ppx: Heparin
Diet: Soft and Bite sized
Code: Full
Anticipated Discharge: Within 24 hours
Subjective/Interval History
-
Date of Service: February 23, 2024
Seen and examined at bedside. No events overnight. Patient is anxious this morning as she was unable to get a hold of her daughter on telephone. Otherwise denied any acute complaints.
Objective Data
-
Labs:
Laboratory Results
02/23/24
06:39
WBC 4.2 L
Hgb 12.7
Hct 35.5 L
Plt Count 228
Sodium 138
Potassium 4.1
Chloride 105
Carbon Dioxide 22
BUN 13
Creatinine 0.7
Glucose 99
Calcium 10.8 H
Vital Signs:
Vital Signs
Temp Pulse Resp BP Pulse Ox
97.3 F 60 16 163/73 98
02/23/24 07:00 02/23/24 07:00 02/23/24 07:00 02/23/24 07:00 02/23/24 07:00
I&O
02/22/24 02/23/24 02/24/24
06:59 06:59 06:59
Intake Total 1100 / 1100
Balance 1100 / 1100
Review of Systems
-
History Source: Patient
Constitutional: Reports No Symptoms
Respiratory: Reports No Symptoms
Cardiac: Reports No Symptoms
Genitourinary: Reports No Symptoms
Musculoskeletal: Reports No Symptoms
Skin: Reports No Symptoms
Neuro: Reports No Symptoms
Psych: Reports Anxious
Physical Exam
-
General: Other (Fair elderly female, anxious but NAD)
HEENT: Normocephalic, Atraumatic, Moist Mucous Membranes and Anicteric
Respiratory: Clear to Auscultation
Cardiac: Regular Rhythm and S1/S2; Negative Murmur, JVD or Gallop
GI: Soft, Nontender, Nondistended and Normal Bowel Sounds
Musculoskeletal: No Edema; Negative Other (No gross deformity)
Skin: Warm, Dry and Decubitus Ulcers
Neuro: AO x 3, Nonfocal/Grossly Intact and Central Nerve's Intact
Hematologic / Lymphatic: No Lymphadenopathy
Data Reviewed
-
Labs: Labs Reviewed by me
--- NOTE | 2024-02-23 11:00 | WOUNDNOTE ---
[facility] RN note: Patient admitted with seizure. Patient lives with her daughter who is her caregiver at home. Patient has a hospital bed at home. VN planned when discharged.
See H&P for complete history.
PMH: Hep C, colitis/Chron's, seizure, HTN, bipolar, depression, bilateral hip replacement, former smoker.
Wound Location and type/assessment: Patient admitted with: healing small stage 2 sacral pressure injury and generalized blanchable red sacrum, L heel slow to kapil red. R heel blanchable red. Daughter reports her sacrum looks improved.
Appetite: good.
Pressure redistribution devices in place: [employer]. Air chair cushion. Patient moves with assistance of 1. She does get out of bed.
Plan: Silicone border foam maintained on sacrum. Patient turned to R semi side lying position with help from LIA Garcia. Heels off bed with pillow. Instructed pressure injury prevention measures with patient and daughter and suggested they take
home her air chair cushion when discharged. Protective foam applied to heels. Discussed with QUINCY Gamboa who plans to switch bed to an air bed or apply a waffle air overlay. t/c cost control supervisor and requested an air bed (red sign).
Will confirm orders with hospitalist.
Care plan to be updated and will follow as needed.
--- NOTE | 2024-02-23 11:05 | WOUNDNOTE ---
[facility] RN note: Patient admitted with seizure. Patient lives with her daughter who is her caregiver at home. Patient has a hospital bed at home. VN planned when discharged.
See H&P for complete history.
PMH: Hep C, colitis/Chron's, seizure, HTN, bipolar, depression, bilateral hip replacement, former smoker.
Wound Location and type/assessment: Patient admitted with: almost healed small stage 2 sacral pressure injury and generalized blanchable red sacrum, L heel slow to kapil red. R heel blanchable red. Daughter reports her sacrum looks improved.
Appetite: good.
Pressure redistribution devices in place: [employer]. Air chair cushion. Patient moves with assistance of 1. She does get out of bed.
Plan: Silicone border foam maintained on sacrum. Patient turned to R semi side lying position with help from LIA Garcia. Heels off bed with pillow. Instructed pressure injury prevention measures with patient and daughter and suggested they take
home her air chair cushion when discharged. Protective foam applied to heels. Discussed with QUINCY Gamboa who plans to switch bed to an air bed or apply a waffle air overlay. t/c gas line installer supervisor and requested an air bed (red sign).
Care plan to be updated, will sign off, contact as needed.
--- NOTE | 2024-02-23 11:05 | WOUNDNOTE ---
WOC RN note: Patient admitted with seizure. Patient lives with her daughter who is her caregiver at home. Patient has
See H&P for complete history.
PMH: Hep C, colitis/Chron's, seizure, HTN, bipolar, depression
Wound Location and type/assessment: Patient admitted with:
Appetite:
Pressure redistribution devices in place:
Plan:
Will confirm orders with hospitalist and update nurse.
Updated care plan and will follow as needed.
Note to case management of equipment requested for discharge:
Recommend follow up at wound care center upon discharge.
--- NOTE | 2024-02-23 12:41 | PTOTSP ---
Video Swallow Examination
Reduced mastication efficiency due to edentulous status, requiring liquid sip to assist with breakdown. The combination of textures resulted in trace but deep laryngeal penetration to level of vocal cords. No aspiration but risk elevated during this
scenario.
Recommend
1. Downgrade to IDDSI 5 (Minced and Moist) and continue thin liquids
2. Clear mouth before liquids.
3. Meds whole in applesauce.
4. Aspiration Precautions.
[2024-02-23] MEDS: NORVASC 10 MG PO (14:55)
[2024-02-23] MEDS: ZYPREXA 15 MG PO (22:12)
[2024-02-24 06:09] LABS: Hematocrit 33.3 % (37.0-47.0); Hemoglobin 11.8 g/dL (12.0-16.0); Mean Corp Hgb Conc. 35.4 g/dL (33.0-37.0); Mean Corpuscular Hgb 33.7 pg (27.0-31.0); Mean Corpuscular Volume 95.1 fL (81.0-99.0); Mean Platelet Volume 9.6 fL (7.4-10.4); Platelet Count 194 10^3/uL (130-400); Red Cell Dist. Width 12.3 % (11.5-14.5); White Blood Cell Count 3.7 10^3/uL (4.8-10.8)
[2024-02-24 06:34] LABS: Blood Urea Nitrogen 13 mg/dl (7-17); Calcium 10.3 mg/dl (8.4-10.2); Carbon Dioxide 24 mmol/L (22-30); Chloride 106 mmol/L (98-107); Estimated Creatinine Clearance 46 ml/min; Glucose 92 mg/dl (70-99); Potassium 4.3 mmol/L (3.5-5.1); Sodium 138 mmol/L (135-145); eGFR > 60.00
[2024-02-24 07:34] VITALS: BP 161/71
[2024-02-24] MEDS: VIMPAT 150 MG PO (08:32)
[2024-02-24] MEDS: ASACOL, DELZICOL DR 800 MG PO ×2 (08:33→16:16)
[2024-02-24] MEDS: COZAAR 25 MG PO (08:33)
[2024-02-24] MEDS: IMODIUM PO (08:33)
[2024-02-24] MEDS: HEPARIN 5000 UNITS SC (08:34)
[2024-02-24 10:40] VITALS: BP 145/71; PULSE 84; O2SAT 99
--- NOTE | 2024-02-24 10:40 | CM ---
Reviewed chart, PT notes. Patient progressing well towards goals per PT should be able to return home when stable.
Plan: Case management will continue to follow and assist with discharge planning. Home when stable.
[2024-02-24 13:54] VITALS: BP 148/71
[2024-02-24] MEDS: NORVASC 10 MG PO (13:54)
--- NOTE | 2024-02-24 14:29 | W.PN.HOSP.TC ---
Today's Communication/Plan
-
Continue lacosamide 150 mg twice daily at discharge
Outpatient follow-up for cervical disc disease
Discharge
Assessment / Plan
Assessment / Plan
#Generalized weakness/deconditioning
-Suspect ongoing weakness from deconditioning and frail status
-PT/OT working with patient, fall precautions
-CM for safe dispo
# Cervical spinal stenosis
-MRI with severe cervical DDD, signs of moderate to severe spinal cord compression/central canal stenosis
-No focal deficits on exam or signs of excessive upper motor neuron drive
-Do not suspect that this is related to her presentation here
-Should follow-up with PCP, consider neurosurgery referral
#H/O of seizures
-Unclear etiology, recent complex partial seizure per daughter at home, on 02/12
-Was found that she was taking the wrong dose of Lacosamide, she has been educated on correct dosage
-C/W Lacosamide at 150 mg twice daily, seizure precuations, IV benzodiazepine for breakthrough
-MRI brain without acute cerebral findings, did show high degrees of cervical stenosis
#sacral wound present on admission
-wound care consulted
-No signs of infection
#Essential HTN
-Home regimen includes Losartan and amlodipine
-No known history of associated systemic complications
-BP today is adequate for age
-Continue Losartan/Norvasc with hold parameters
#Bipolar Disorder/anxiety
-Currently on Zyprexa, Valium
-Does have some signs of EPS/TD on exam
#History of colitis, unspecified
-Suspect she has history of UC as she is currently on mesalamine
-No out-pt records with information on this diagnosis
-No recent hematochezia or other signs of flare
DVT ppx: Heparin
Diet: Soft and Bite sized
Code: Full
Anticipated Discharge: Today
Subjective/Interval History
-
Date of Service: February 24, 2024
No events overnight. Appears well and in good spirits this morning, daughter at the bedside. She denies any acute complaints. No
Objective Data
-
Labs:
Laboratory Results
02/24/24
05:37
WBC 3.7 L
Hgb 11.8 L
Hct 33.3 L
Plt Count 194
Sodium 138
Potassium 4.3
Chloride 106
Carbon Dioxide 24
BUN 13
Creatinine 0.7
Glucose 92
Calcium 10.3 H
Vital Signs:
Vital Signs
Temp Pulse Resp BP Pulse Ox
97.8 F 78 18 148/71 99
02/24/24 13:54 02/24/24 13:54 02/24/24 13:54 02/24/24 13:54 02/24/24 13:54
I&O
02/23/24 02/24/24 02/25/24
06:59 06:59 06:59
Intake Total 970 / 970
Balance 970 / 970
Review of Systems
-
History Source: Patient and Family
All other systems: Reviewed and negative
Physical Exam
-
General: No Apparent Distress, Comfortable and Other (Frail elderly female)
HEENT: Normocephalic, Atraumatic, Moist Mucous Membranes and Anicteric
Respiratory: Clear to Auscultation; Negative Wheezes, Rales or Rhonchi
Cardiac: Regular Rhythm and S1/S2; Negative Murmur, Rub, JVD or Gallop
GI: Soft, Nontender, Nondistended and Normal Bowel Sounds
Musculoskeletal: No Clubbing, No Cyanosis and No Edema
Skin: Warm and Dry; Negative Rash
Neuro: AO x 3, Nonfocal/Grossly Intact and Central Nerve's Intact; Negative Tremors
Psych: Calm
Data Reviewed
-
MRI: Discussed with Family
Labs: Labs Reviewed by me and Discussed with Family
[2024-02-24] MEDS: PREVNAR 20 0.5 ML IM (16:07)
--- NOTE | 2024-02-24 16:10 | CM ---
Received chart, per RN, patient's daughter wanted to meet with CM. Met with patient's daughter who stated that she would like for patient to return home with [facility]. Referral sent.
Plan: Case management will continue to follow and assist with discharge planning. Home with home health.
[2024-02-24] MEDS: IMODIUM 2 MG PO (16:16)
[2024-02-26 22:13] LABS: Vitamin B1, Whole Blood 161 nmol/L (70-180)
== END 2024-02-24 18:20 | disposition home health service (06) ==
LOC: 3 WEST ACU 19:55
PROVIDERS: Registered Nurse; ADMITTING PHYSICIAN Internal Medicine; ATTENDING PHYSICIAN Internal Medicine; CONSULT PHYSICIAN Psychiatry & Neurology Neurology; EMERGENCY PHYSICIAN Emergency Medicine
DX: G40.209 Localization-related (focal) (partial) symptomatic epilepsy and epileptic syndromes with complex partial seizures, not intractable, without status epilepticus (principal); T50.996A Underdosing of other drugs, medicaments and biological substances, initial encounter; Z91.138 Patient's unintentional underdosing of medication regimen for other reason; Y92.003 Bedroom of unspecified non-institutional (private) residence as the place of occurrence of the external cause; I10 Essential (primary) hypertension; F10.21 Alcohol dependence, in remission; F31.9 Bipolar disorder, unspecified; R53.1 Weakness; F19.11 Other psychoactive substance abuse, in remission; R26.2 Difficulty in walking, not elsewhere classified; R06.02 Shortness of breath; E78.00 Pure hypercholesterolemia, unspecified; R42 Dizziness and giddiness; J98.11 Atelectasis; M51.34 Other intervertebral disc degeneration, thoracic region; R13.10 Dysphagia, unspecified; K50.90 Crohn's disease, unspecified, without complications; M50.021 Cervical disc disorder at C4-C5 level with myelopathy; M48.02 Spinal stenosis, cervical region; M50.022 Cervical disc disorder at C5-C6 level with myelopathy; M85.80 Other specified disorders of bone density and structure, unspecified site; R25.1 Tremor, unspecified; Q61.02 Congenital multiple renal cysts; K21.9 Gastro-esophageal reflux disease without esophagitis; F41.9 Anxiety disorder, unspecified; L89.156 Pressure-induced deep tissue damage of sacral region; R51.9 Headache, unspecified; R53.83 Other fatigue; Z87.891 Personal history of nicotine dependence; Z86.19 Personal history of other infectious and parasitic diseases; Z91.040 Latex allergy status; Z96.643 Presence of artificial hip joint, bilateral; Z87.19 Personal history of other diseases of the digestive system; Z23 Encounter for immunization; Z11.52 Encounter for screening for COVID-19
CPT/HCPCS: 70553; 71046; 74177; 74230; 80048; 80053; 81003; 81015; 82607; 84425; 84443; 85025; 85027; 85652; 86140; 87070; 87086; 87147; 87186; 87811; 90677; 92610; 92611; 97163; 97167; 97530; 99284; A9575; G0009; G0378; Q9967

== ENCOUNTER → 2024-04-15 14:04 | Outpatient (REF) | payer MEDICARE, OTHER, SELFPAY | LOC: RAD 14:04 | PROVIDERS: ATTENDING PHYSICIAN Family Medicine | DX: M25.512 Pain in left shoulder (principal) | CPT/HCPCS: 73030 ==

== ENCOUNTER 2024-05-15 13:48 | Emergency (ER) | payer MEDICARE, OTHER, SELFPAY ==
[2024-05-15 13:49] VITALS: BP 186/82
[2024-05-15 14:00] VITALS: BP 168/81
--- NOTE | 2024-05-15 14:19 | ED.MUSCINJ ---
HPI-Injury
General
Chief Complaint: Musculo-Skeletal Complaint
Source: patient and family (daughter)
Exam Limitations: none
Time Seen by Provider: 05/15/24 13:55
Nursing documentation reviewed up to this point in time: agreed with
History of Present Illness-Injury
Is this injury a work related problem?: No
Is pt an associate of [facility]?: No
Initial Injury comments:
Patient to ED after seizure and fall. States she was walking with walker to bathroom and had a seizure. History of seizures. Treated with Vimpat. Daughter reports complaince. Fell from standing position. COmplains of pain to head, neck, right
buttock. Incident occurred just [employer]FER[employer] SERVICES DIRECT[employer]. Brought to ED via EMS for eval.
Past History
Past History
ED Past Medical History: HTN, Hypercholesterolemia, Psychiatric (Bipolar disorder) and Other (Hepatitis C, Colitis)
ED Past Surgical History: Orthopedic (Right hip replacement 11/26/2012)
Social History
Tobacco: Former smoker
Alcohol: Former (Sober for 17 years)
Drug: None
Personal:
Living: with family (Daughter)
Employment: Retired
Family History
Family History: Other (Noncontributory)
Injury Course
Orders/Labs/Results
Orders:
Orders
05/15/24 14:15
Cerv[address] Spine wo Contrast CT [CT Cervical Spine W/o Iv Contr] Urgent
Comment:
Reason For Exam: seizure, fall
Pelvis, 1 or 2 Views CR [CR Pelvis - 1 Or 2 Views ] Urgent
Comment:
Reason For Exam: fall
05/15/24 14:18
CT Head W/o Iv Contrast Urgent
Comment:
Reason For Exam: seizure, fall
05/15/24 14:22
Basic Metabolic Panel Urgent
Complete Blood Count/With Diff Urgent
05/15/24 15:10
Ketorolac [Toradol] 15 mg IV NOW STA
05/15/24 15:11
Comprehensive Metabolic Panel Urgent
Free T4 Urgent
Magnesium Urgent
TSH Reflex To Free T4 Urgent
Comment: ADD ON
05/15/24 15:18
Urinalysis Reflex To Culture Urgent
Date Specimen was Collected: 05/15/24
Time Specimen was Collected: 15:18
Urine Drug Abuse Screen Urgent
Date Specimen was Collected: 05/15/24
Time Specimen was Collected: 15:18
Urine Microscopic Reflex Cult Urgent
05/15/24 16:30
Add On- LAB Urgent
Tests Added?: TSH reflex T4, Urine drug abuse screen
Abnormal Lab Results
05/15/24 05/15/24 05/15/24
14:22 15:11 15:18
RBC 3.69 L 10^6/uL
(4.20-5.40)
Hct 35.0 L %
(37.0-47.0)
MCH 32.8 H pg
(27.0-31.0)
Abs Immat Gran (auto) 0.1 H 10^3/uL
(0-0.05)
Absolute Lymphs (auto) 0.8 L 10^3/uL
(1.2-3.4)
Immature Gran % 0.7 H %
(0-0.5)
Neutrophils % 83.1 H %
(42.2-75.2)
Lymphocytes % 11.2 L %
(20.5-51.1)
Chloride 108 H mmol/L
(98-107)
Carbon Dioxide 21 L mmol/L
(22-30)
Glucose 107 H mg/dl
(70-99)
Calcium 10.4 H mg/dl 10.5 H mg/dl
(8.4-10.2) (8.4-10.2)
TSH (Reflex) 0.38 L uIU/ml
(0.47-4.68)
Leukocyte Esterase Rfl Trace A
(Negative)
05/15/24 14:22
05/15/24 15:11
ED Attending Note
-
Portions of this chart may have been created with voice recognition software.� Occasional wrong word or��sound alike� substitutions may have occurred due to the inherent limitations of voice recognition software.
Discharge Plan
Departure
Prescriptions:
No Action
losartan 25 MG tablet
25 mg PO DAILY
mesalamine 400 MG capsule (with del rel tablets)
800 mg PO TID
olanzapine [Zyprexa] 15 MG tablet
15 mg PO HS
amlodipine 10 mg tablet
10 mg PO DAILY@1400
acetaminophen [Tylenol Extra Strength] 500 mg Tablet
1,000 mg PO TID@1000,1400,1900
diazepam [Valium] 5 mg Tablet
5 mg PO TIDPRN PRN (Reason: anxiety)
cyanocobalamin (vitamin B-12) 500 mcg Tablet,Chewable
500 mcg PO DAILY
Centrum Chewables 8 mg-400 mcg- 10 mcg Tablet,Chewable
1 tab PO DAILY
lacosamide 100 mg Tablet
150 mg PO BID Qty: 90 0RF
Referrals:
Pema Mae MD [Family Provider] -
Interventions
Interventions:
*Risk Screen - Suicide Last Done: 05/15/24 13:49
*General Assessment Last Done: 05/15/24 13:49
*Neglect/Abuse Screening Last Done: 05/15/24 13:49
Discharge Date and Time
Print Language: AZERI
[2024-05-15 14:34] LABS: % Basophils 0.3 % (0-2); % Eosinophils 0.3 % (0-6); % Immature Granulocytes 0.7 % (0-0.5); % Lymphocytes 11.2 % (20.5-51.1); % Monocytes 4.4 % (1.7-9.3); % Neutrophils 83.1 % (42.2-75.2); Absolute Immature Granulocytes 0.1 10^3/uL (0-0.05); Absolute Lymphocytes 0.8 10^3/uL (1.2-3.4); Absolute Monocytes 0.3 10^3/uL (0.1-0.6); Hemoglobin 12.1 g/dL (12.0-16.0); Mean Corp Hgb Conc. 34.6 g/dL (33.0-37.0); Mean Corpuscular Hgb 32.8 pg (27.0-31.0); Mean Corpuscular Volume 94.9 fL (81.0-99.0); Mean Platelet Volume 9.1 fL (7.4-10.4); Nucleated Red Blood Cells % 0 %; Platelet Count 225 10^3/uL (130-400); Red Blood Cell Count 3.69 10^6/uL (4.20-5.40); Red Cell Dist. Width 13.1 % (11.5-14.5); White Blood Cell Count 7.2 10^3/uL (4.8-10.8)
[2024-05-15 14:55] LABS: Blood Urea Nitrogen 13 mg/dl (7-17); Calcium 10.4 mg/dl (8.4-10.2); Carbon Dioxide 22 mmol/L (22-30); Chloride 107 mmol/L (98-107); Estimated Creatinine Clearance 62 ml/min; Glucose 107 mg/dl (70-99); Sodium 141 mmol/L (135-145); eGFR > 60.00
[2024-05-15 15:20] VITALS: BP 156/97
[2024-05-15] MEDS: TORADOL 15 MG IV (15:22)
[2024-05-15 15:26] LABS: Urine Albumin Negative (Neg - Trace); Urine Bilirubin Negative (Negative); Urine Character Clear (Clear); Urine Color Straw; Urine Glucose Negative (Negative); Urine Ketone Negative (Negative); Urine Leukocyte Trace (Negative); Urine Nitrite Negative (Negative); Urine Occult Blood Negative (Negative); Urine Urobilinogen Negative (Neg - 1+)
[2024-05-15 15:28] LABS: Urine Red Blood Cell 0-2 /HPF (0-2); Urine White Cell 0-2 /HPF (0-5)
[2024-05-15 15:49] LABS: ALT (SGPT) 30 U/L (0-35); AST (SGOT) 36 U/L (14-36); Albumin 4.5 g/dl (3.5-5.0); Alkaline Phosphatase 68 U/L (38-126); Blood Urea Nitrogen 12 mg/dl (7-17); Calcium 10.5 mg/dl (8.4-10.2); Carbon Dioxide 21 mmol/L (22-30); Chloride 108 mmol/L (98-107); Estimated Creatinine Clearance 62 ml/min; Glucose 97 mg/dl (70-99); Magnesium 1.9 mg/dl (1.6-2.3); Potassium 4.1 mmol/L (3.5-5.1); Sodium 143 mmol/L (135-145); Total Bilirubin 0.5 mg/dl (0.2-1.3); Total Protein 7.2 g/dl (6.3-8.2); eGFR > 60.00
[2024-05-15 16:00] VITALS: BP 113/79
[2024-05-15 17:11] LABS: Amphetamines Negative (Negative); Barbiturates Negative (Negative); Benzodiazepines Negative (Negative); Buprenorphine Negative (Negative); Cocaine Negative (Negative); Marijuana Negative (Negative); Methadone Negative (Negative); Methamphetamines Negative (Negative); Opiates Negative (Negative); Phencyclidine Negative (Negative); Tricyclic Antidepressants Negative (Negative)
[2024-05-15 17:44] LABS: TSH Reflex To Free T4 0.38 uIU/ml (0.47-4.68)
[2024-05-15 18:12] LABS: Free T4 1.45 ng/dl (0.78-2.19)
== END 2024-05-15 18:06 | disposition home or self-care (01) ==
LOC: EMR 13:48
PROVIDERS: Nurse Practitioner; EMERGENCY PHYSICIAN Emergency Medicine; FAMILY PHYSICIAN Family Medicine
DX: R56.9 Unspecified convulsions (principal); S09.90XA Unspecified injury of head, initial encounter; M25.551 Pain in right hip; M54.2 Cervicalgia; W18.30XA Fall on same level, unspecified, initial encounter; Y93.01 Activity, walking, marching and hiking; I10 Essential (primary) hypertension; E78.00 Pure hypercholesterolemia, unspecified; F31.9 Bipolar disorder, unspecified; K52.9 Noninfective gastroenteritis and colitis, unspecified; Z86.19 Personal history of other infectious and parasitic diseases; Z96.641 Presence of right artificial hip joint; Z87.891 Personal history of nicotine dependence; Z91.040 Latex allergy status
CPT/HCPCS: 99284; 96374; 70450; 72125; 72170; 80048; 80053; 80306; 81003; 81015; 83735; 84439; 84443; 85025